=== PATIENT | male | born 1965 | race Caucasian/White ===

== ENCOUNTER 2017-02-02 09:20 | Outpatient (CLI) | payer BC, OTHER ==
[2017-02-02 11:35] LABS: *BILIRUBIN,URIN NEGATIVE (NEGATIVE); *BLOOD, URINE NEGATIVE (NEGATIVE); *CLARITY,URINE CLEAR (CLEAR); *COLOR,URINE YELLOW (YELLOW); *KETONES,URINE NEGATIVE (NEGATIVE); *PROTEIN,URINE NEGATIVE (NEGATIVE); *UROBILINOGEN,URINE 0.2 E.U./dl (NORMAL); LEUKOCYTE ESTERASE ,URINE NEGATIVE (NEGATIVE); NITRITE, URINE NEGATIVE (NEGATIVE)
[2017-02-02 11:54] LABS: ALBUMIN 4.1 g/dL (3.4-5.0); BASOPHILS % (AUTO) 0.5 % (0.0-2.0); BILIRUBIN,TOTAL 0.5 mg/dL (0.2-1.0); CALCIUM 9.3 mg/dL (8.5-10.1); CREATININE 1.2 mg/dL (0.6-1.3); EOSINOPHILS # (AUTO) 0.2 K/uL (0.0-0.7); EOSINOPHILS % (AUTO) 2.9 % (0.0-7.0); HEMATOCRIT 46.2 % (36.7-47.1); HEMOGLOBIN 15.9 g/dL (12.5-16.3); LYMPHOCYTES # (AUTO) 1.6 K/uL (20.0-40.0); LYMPHOCYTES % (AUTO) 28.3 % (20.5-51.5); MEAN CORPUSCULAR HGB CONC 35 g/dL (32.5-36.3); MEAN CORPUSCULAR VOLUME 87.1 fL (73.0-96.2); MONOCYTES # (AUTO) 0.4 K/uL (2.0-10.0); MONOCYTES % (AUTO) 6.5 % (0.0-11.0); NEUTROPHILS # (AUTO) 3.6 K/uL (1.8-8.9); NEUTROPHILS % (AUTO) 61.8 % (38.5-71.5); PLATELET COUNT (AUTO) 207 K/uL (152-348); POTASSIUM 4.1 mmol/L (3.5-5.1); RED BLOOD CELL COUNT(AUTO) 5.31 MIL/uL (4.06-5.63); TOTAL PROTEIN, SERUM 7.4 g/dL (6.4-8.2); WHITE BLOOD COUNT (AUTO) 5.8 K/uL (3.6-10.2)
[2017-02-02 12:06] LABS: UGLUCOSE 3+ (NEGATIVE)
[2017-02-02 12:10] LABS: BACTERIA,URINE NONE SEEN /HPF (NONE SEEN); MUCUS,URINE FEW /LPF (0-FEW); RBC,URINE 0-3 /HPF (0-3); SQUAMOUS EPITHELIAL CELL,UR FEW /HPF (NONE SEEN); WBC,URINE 0-3 /HPF (0-3)
[2017-02-02 12:23] LABS: THYROID STIMULATING HORMONE 3.471 mIU/mL (0.358-3.740)
[2017-02-02 18:22] LABS: FREE T4 (FREE THYROXINE) 1.14 ng/dL (0.76-1.46)
[2017-02-03 08:06] LABS: TRIIODOTHYRONINE, FREE 3.1 pg/mL (2.0-4.4)
== END 2017-02-02 23:59 | disposition home or self-care (01) ==
LOC: LAB 09:20
DX: E11.9 Type 2 diabetes mellitus without complications (principal); E78.5 Hyperlipidemia, unspecified; R53.83 Other fatigue; R53.81 Other malaise; K21.9 Gastro-esophageal reflux disease without esophagitis
CPT/HCPCS: 36415; 84403; 84443; 84481; 85025; 85651; 86140; 87086; 89055

== ENCOUNTER 2017-06-29 11:45 | Outpatient (CLI) | payer BC, OTHER ==
[2017-06-29 12:00] LABS: BILIRUBIN,TOTAL 0.7 mg/dL (0.2-1.0); POTASSIUM 3.9 mmol/L (3.5-5.1); TOTAL PROTEIN, SERUM 7.6 g/dL (6.4-8.2)
[2017-06-30 13:12] LABS: *MICROALBUMIN, UR <3.0 ug/mL (Not Estab.); CREATININE, URINE 63.2 mg/dL (Not Estab.); MICROALBUMIN/CREAT RATIO, UR <4.7 mg/g creat (0.0-30.0)
== END 2017-06-29 23:59 | disposition home or self-care (01) ==
LOC: LAB 11:45
PROVIDERS: ATTEND Internal Medicine
DX: M47.894 Other spondylosis, thoracic region (principal); E11.9 Type 2 diabetes mellitus without complications; E78.5 Hyperlipidemia, unspecified
CPT/HCPCS: 36415; 71020; 82043; 82570

== ENCOUNTER 2017-09-28 10:17 | Outpatient (CLI) | payer BC, OTHER ==
[2017-09-28 11:22] LABS: BILIRUBIN,TOTAL 0.6 mg/dL (0.2-1.0); CREATININE 1.1 mg/dL (0.6-1.3); POTASSIUM 3.9 mmol/L (3.5-5.1); TOTAL PROTEIN, SERUM 7.1 g/dL (6.4-8.2)
== END 2017-09-28 23:59 | disposition home or self-care (01) ==
LOC: LAB 10:17
PROVIDERS: ATTEND Internal Medicine
DX: E11.9 Type 2 diabetes mellitus without complications (principal); E03.9 Hypothyroidism, unspecified
CPT/HCPCS: 36415

== ENCOUNTER 2018-01-18 10:28 | Outpatient (CLI) | payer BC, OTHER ==
[2018-01-18 11:31] LABS: BILIRUBIN,TOTAL 0.6 mg/dL (0.2-1.0); POTASSIUM 3.9 mmol/L (3.5-5.1); TOTAL PROTEIN, SERUM 7.4 g/dL (6.4-8.2)
== END 2018-01-18 23:59 | disposition home or self-care (01) ==
LOC: LAB 10:28
DX: E11.9 Type 2 diabetes mellitus without complications (principal); E78.5 Hyperlipidemia, unspecified
CPT/HCPCS: 36415

== ENCOUNTER 2018-08-16 09:58 | Outpatient (CLI) | payer BC, OTHER ==
[2018-08-16 11:01] LABS: *BILIRUBIN,URIN NEGATIVE (NEGATIVE); *BLOOD, URINE NEGATIVE (NEGATIVE); *CLARITY,URINE CLEAR (CLEAR); *COLOR,URINE YELLOW (YELLOW); *KETONES,URINE NEGATIVE (NEGATIVE); *PROTEIN,URINE NEGATIVE (NEGATIVE); *UROBILINOGEN,URINE 0.2 E.U./dl (NORMAL); LEUKOCYTE ESTERASE ,URINE NEGATIVE (NEGATIVE); NITRITE, URINE NEGATIVE (NEGATIVE); PH,URINE 5.5 (5.0-8.0)
[2018-08-16 11:08] LABS: UGLUCOSE 3+ (NEGATIVE)
[2018-08-16 11:14] LABS: BASOPHILS % (AUTO) 0.5 % (0.0-2.0); EOSINOPHILS # (AUTO) 0.1 K/uL (0.0-0.7); HEMATOCRIT 43.1 % (36.7-47.1); HEMOGLOBIN 15.2 g/dL (12.5-16.3); LYMPHOCYTES # (AUTO) 1.3 K/uL (20.0-40.0); LYMPHOCYTES % (AUTO) 27.2 % (20.5-51.5); MEAN CORPUSCULAR HEMOGLOBIN 31.6 uug (23.8-33.4); MEAN CORPUSCULAR HGB CONC 35 g/dL (32.5-36.3); MEAN CORPUSCULAR VOLUME 89.8 fL (73.0-96.2); MONOCYTES # (AUTO) 0.3 K/uL (2.0-10.0); MONOCYTES % (AUTO) 7.1 % (0.0-11.0); NEUTROPHILS # (AUTO) 2.9 K/uL (1.8-8.9); NEUTROPHILS % (AUTO) 62.2 % (38.5-71.5); PLATELET COUNT (AUTO) 198 K/uL (152-348); WHITE BLOOD COUNT (AUTO) 4.7 K/uL (3.6-10.2)
[2018-08-16 11:15] LABS: RBC,URINE 0-3 /HPF (0-3)
[2018-08-16 11:16] LABS: BACTERIA,URINE NONE SEEN /HPF (NONE SEEN); SQUAMOUS EPITHELIAL CELL,UR FEW /HPF (NONE SEEN); WBC,URINE 0-3 /HPF (0-3); YEAST,URINE FEW /HPF (NONE SEEN)
[2018-08-16 11:17] LABS: MUCUS,URINE FEW /LPF (0-FEW)
[2018-08-16 11:22] LABS: BILIRUBIN,TOTAL 0.5 mg/dL (0.2-1.0); POTASSIUM 4.1 mmol/L (3.5-5.1); TOTAL PROTEIN, SERUM 7.4 g/dL (6.4-8.2)
[2018-08-16 11:29] LABS: THYROID STIMULATING HORMONE 2.649 mIU/mL (0.358-3.740)
[2018-08-17 08:07] LABS: *TESTOSTERONE, SERUM 377 ng/dL (264-916); TRIIODOTHYRONINE, FREE 3.6 pg/mL (2.0-4.4)
== END 2018-08-16 23:59 | disposition home or self-care (01) ==
LOC: LAB 09:58
DX: E11.9 Type 2 diabetes mellitus without complications (principal); I10 Essential (primary) hypertension; E78.5 Hyperlipidemia, unspecified; E55.9 Vitamin D deficiency, unspecified; R53.83 Other fatigue; R53.81 Other malaise
CPT/HCPCS: 36415; 82043; 82570; 84153; 84402; 84403; 84443; 84481; 85025; 87086

== ENCOUNTER 2018-11-01 09:50 | Outpatient (CLI) | payer BC, OTHER ==
[2018-11-01 10:58] LABS: BILIRUBIN,TOTAL 0.6 mg/dL (0.2-1.0); CREATININE 1.1 mg/dL (0.6-1.3); TOTAL PROTEIN, SERUM 7.4 g/dL (6.4-8.2)
== END 2018-11-01 23:59 | disposition home or self-care (01) ==
LOC: RAD 09:50
DX: R91.1 Solitary pulmonary nodule (principal); E11.9 Type 2 diabetes mellitus without complications
CPT/HCPCS: 36415; 71046

== ENCOUNTER 2020-11-19 14:45 | Emergency (ER) | payer BC, OTHER ==
[~2020-11-19] VITALS: Ht 172.7 cm; Wt 81.6 kg
[2020-11-19] MEDS ORDERED: AZIT1PAC PO (15:12)
[2020-11-19] MEDS ORDERED: GUAI5SYR4 GT (15:12)
--- NOTE | 2020-11-19 15:20 | NUR ---
Patient discharged to home in stable condition. Written and verbal after care instructions given. Patient verbalizes understanding of instructions. Stressed follow up or return to ER for worsening s/s.pt understood the necesity of strict social isolation/wearing mask.
== END 2020-11-19 15:22 | disposition home or self-care (01) ==
LOC: ER 14:47
DX: R05 Cough (principal); Z20.822 Contact with and (suspected) exposure to COVID-19
CPT/HCPCS: A4663

== ENCOUNTER 2023-02-20 10:27 | Outpatient (CLI) | payer BC, OTHER ==
[~2023-02-20 10:27] MED LIST: AZIT1PAC PO; GUAI5SYR4 GT
== END 2023-02-20 23:59 | disposition home or self-care (01) ==
LOC: LAB 10:27
PROVIDERS: ATTEND Family Medicine
DX: E11.9 Type 2 diabetes mellitus without complications (principal)